=== PATIENT | female | born 1965 | race Hispanic/Latino ===

== ENCOUNTER 2018-03-10 20:41 | Emergency (ER) | payer OTHER ==
[2018-03-10] MEDS ORDERED: Tetracaine 0.5% OPHTH SOLN/PF 4 ML BOT ONE (20:51)
[2018-03-10] MEDS ORDERED: Tobramycin Sulfate 0.3% Ophth Susp 5 ml Bottle ONE (21:01)
== END 2018-03-10 21:13 | disposition home or self-care (01) ==
LOC: MADERS 20:41
DX: H10.33 Unspecified acute conjunctivitis, bilateral (principal); E11.9 Type 2 diabetes mellitus without complications
CPT/HCPCS: 99282